=== PATIENT | male | born 1980 | race Caucasian/White ===

== ENCOUNTER 2018-01-11 16:38 | Emergency (ER) | payer OTHER ==
[2018-01-11] MEDS: ONDANSETRON (ODT) 4 MG TAB ODT (19:09)
[2018-01-11] MEDS: KETOROLAC 60 MG INJ IM (19:12)
== END 2018-01-11 20:15 | disposition home or self-care (01) ==
LOC: FTE 16:38
DX: R05 Cough (principal); R51 Headache
CPT/HCPCS: 71045; 96372; 99284-25